=== PATIENT | female | born 1995 | race African-American/Black ===

== ENCOUNTER 2017-07-07 21:35 | Emergency (ER) | payer OTHER, BC ==
[~2017-07-07] VITALS: Ht 162.6 cm; Wt 50.0 kg
[2017-07-07 21:54] VITALS: BP 117/71; PULSE 76; RESP 16; TEMP 98.6; O2SAT 100
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
[2017-07-07] MEDS ORDERED: SODIUM CHLOR 0.9% 1000 ML INJ 1,000 ML IV ONE (22:30)
[2017-07-07] MEDS ORDERED: TETANUS/DIPHTHERIA TOXOID ADULT 0.5 ML VIAL IM ONE (22:30)
[2017-07-07] MEDS ORDERED: ceFAZolin 2 GM PREMIX 50 ML IV ONE (23:00)
[2017-07-07 23:08] LABS: AUTOMATED NEUTROPHIL # 5.6 TH/MM3 (1.8-7.7); BASOPHIL % 0.5 % (0.0-2.0); EOSINOPHIL # 0.1 TH/MM3 (0-0.4); EOSINOPHIL % 0.8 % (0.0-4.0); HEMATOCRIT 39.6 % (35.0-46.0); HEMOGLOBIN 13.8 GM/DL (11.6-15.3); LYMPH % 30.6 % (9.0-44.0); LYMPHOCYTE # 2.8 TH/MM3 (1.0-4.8); MEAN CELL VOLUME 88.4 FL (80.0-100.0); MEAN CORPUSCULAR HEMOGLOBIN 30.7 PG (27.0-34.0); MEAN CORPUSCULAR HGB CONC 34.7 % (32.0-36.0); MONO % 6.6 % (0.0-8.0); MONOCYTE # 0.6 TH/MM3 (0-0.9); NEUT % 61.5 % (16.0-70.0); PLATELET COUNT 228 TH/MM3 (150-450); RED BLOOD COUNT 4.48 MIL/MM3 (4.00-5.30); RED CELL DISTRIBUTION WIDTH 12.6 % (11.6-17.2); WHITE BLOOD COUNT 9.1 TH/MM3 (4.0-11.0)
[2017-07-07 23:30] LABS: ALBUMIN 4.4 GM/DL (3.4-5.0); ALT (GPT) 14 U/L (9-42); AST (GOT) 20 U/L (16-38); BICARBONATE 23.7 MEQ/L (21.0-32.0); BLOOD UREA NITROGEN 12 MG/DL (7-18); CHLORIDE 107 MEQ/L (98-107); CREATININE 0.76 MG/DL (0.50-1.00); GLOMERULAR FILTRATION RATE 117 ML/MIN (>89); GLUCOSE,RANDOM 77 MG/DL (74-106); SODIUM (NA) 139 MEQ/L (136-145)
[2017-07-07 23:32] LABS: ALKALINE PHOSPHATASE 80 U/L (45-117); TOTAL BILIRUBIN ADULT 1.4 MG/DL (0.2-1.0); TOTAL PROTEIN 7.5 GM/DL (6.4-8.2)
[2017-07-07] MEDS ORDERED: IOHEXOL 350 MG/ML 10 ML VIAL (for RAD DIAG) IVCONTRAST ONE (23:41)
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
[2017-07-08] MEDS ORDERED: LIDOCAINE 2%/EPINEPHrine 1:100,000 20ML MDV NERV BLOCK ONE (01:15)
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
[2017-07-08] MEDS ORDERED: CEPH-460 PO (03:29)
[2017-07-08] MEDS ORDERED: CYCL10TA PO (03:29)
[2017-07-08] MEDS ORDERED: IBUP-232 PO (03:29)
[2017-07-08] MEDS ORDERED: BACI500O9 TOPICAL (03:30)
[2017-07-08] MEDS ORDERED: oxyCODONE/ACETAMINOPHEN 5 MG/325 MG TAB PO ONE (03:45)
[2017-07-08] MEDS ORDERED: IBUPROFEN 600 MG TAB PO ONE (03:45)
[2017-07-08 03:46] VITALS: BP 106/76
== END 2017-07-08 03:47 | disposition home or self-care (01) ==
LOC: NEPC 21:35
DX: S01.121A Laceration with foreign body of right eyelid and periocular area, initial encounter (principal); S01.82XA Laceration with foreign body of other part of head, initial encounter; F12.90 Cannabis use, unspecified, uncomplicated; V47.6XXA Car passenger injured in collision with fixed or stationary object in traffic accident, initial encounter; Y92.410 Unspecified street and highway as the place of occurrence of the external cause; Z23 Encounter for immunization
CPT/HCPCS: 12011; 70450; 70480; 70486; 71260; 72125; 74177; 80053; 84702; 84703; 85025; 90471; 90714; 96361; 96365; 96366; 99284; J0690; J7030; Q9967; 10120